=== PATIENT | female | born 1985 | race Two or more races ===

== ENCOUNTER 2018-01-12 15:30 | Inpatient (IN) | payer OTHER ==
[~2018-01-12] VITALS: Ht 162.6 cm; Wt 80.7 kg
[2018-01-13] MEDS ORDERED: PRENATAL + DHA1 EAC1 PO (07:29)
[2018-01-13] MEDS ORDERED: VITAMIN D1000 UNIT PO (07:29)
[2018-01-13] MEDS ORDERED: VITAMIN C100 MG PO (07:30)
[2018-01-13] MEDS ORDERED: PROBIOTIC1 EAC1 PO (07:31)
[2018-01-13] MEDS ORDERED: TYLENOL EXTRA500 MG PO (07:32)
== END 2018-01-15 14:46 | disposition home or self-care (01) | DRG 775 ==
LOC: OB/GYN 01-13 06:36 → LDR 01-13 06:36 → OB/GYN 01-13 08:45
PROC: 10E0XZZ Delivery of Products of Conception, External Approach (ICD-10-PCS; principal; 2018-01-13)
PROC: 10907ZC Drainage of Amniotic Fluid, Therapeutic from Products of Conception, Via Natural or Artificial Opening (ICD-10-PCS; 2018-01-13)
PROC: 4A1HXCZ Monitoring of Products of Conception, Cardiac Rate, External Approach (ICD-10-PCS; 2018-01-13)
DX: O80 Encounter for full-term uncomplicated delivery (principal); Z3A.38 38 weeks gestation of pregnancy; Z37.0 Single live birth

== ENCOUNTER 2020-02-21 15:53 | Inpatient (IN) | payer OTHER ==
[~2020-02-21] VITALS: Ht 162.6 cm; Wt 83.9 kg
[~2020-02-21 15:53] MED LIST: PRENATAL + DHA1 EAC1 PO; PROBIOTIC1 EAC1 PO; TYLENOL EXTRA500 MG PO; VITAMIN C100 MG PO; VITAMIN D1000 UNIT PO
[2020-03-02] MEDS ORDERED: CHILDREN'S ASPI81 MG PO (07:22)
== END 2020-03-04 11:08 | disposition home or self-care (01) | DRG 807 ==
LOC: LDR 03-02 06:54 → OB/GYN 03-02 09:37
PROVIDERS: ADMIT Specialist; ATTEND Specialist
PROC: 10E0XZZ Delivery of Products of Conception, External Approach (ICD-10-PCS; principal; 2020-03-02)
PROC: 4A1HXFZ Monitoring of Products of Conception, Cardiac Rhythm, External Approach (ICD-10-PCS; 2020-03-02)
PROC: 3E033VJ Introduction of Other Hormone into Peripheral Vein, Percutaneous Approach (ICD-10-PCS; 2020-03-02)
PROC: 0HQ9XZZ Repair Perineum Skin, External Approach (ICD-10-PCS; 2020-03-02)
PROC: 10907ZC Drainage of Amniotic Fluid, Therapeutic from Products of Conception, Via Natural or Artificial Opening (ICD-10-PCS; 2020-03-02)
DX: O70.0 First degree perineal laceration during delivery (principal); Z37.0 Single live birth; Z3A.38 38 weeks gestation of pregnancy